=== PATIENT | female | born 1980 | race Caucasian/White ===

== ENCOUNTER → 2017-04-04 | Outpatient (CLI) | payer OTHER ==
[~2017-04-04] MED LIST: AMOXIL500 MG PO; CARBAMAZEPINE200 MG PO; CETIRIZINE HCL10 MG PO; CIPRO 500MG TA500 MG PO; DILANTIN 100MG100 MG PO; KEPPRA1000 MG PO; MEDROL 4MG. DOSE4 MG PO; NAPROSYN 500MG500 MG PO; OXAZEPAM10 MG PO; PHENERGAN 25MG.25 M1 PO; PHENERGAN VC S473 ML PO; PROTONIX 40MG T40 MG PO; TEGRETOL200 MG PO; TESSALON PERLE200 MG PO; ZITHROMAX Z PA250 MG PO; ZOFRAN4 MG PO
--- NOTE | 2017-04-04 13:23 | RADIOLOGY REPORT PS360 ---
US PELVIS-TRANSVAGINAL ONLY COMPARISON: Transvaginal ultrasound pelvis 06/23/2015 HISTORY: Recent surgery, having some vaginal bleeding TECHNIQUE: Transvaginal ultrasound FINDINGS: The uterus is surgically absent. There are no abnormal masses in the vaginal cuff. Both ovaries are imaged the right ovary slightly larger than left with a small functional cyst right ovary measuring 1.0 x 0.9 cm. There is no cul-de-sac fluid. IMPRESSION: Essentially unremarkable study post hysterectomy
== END ==
LOC: RAD 09:56
DX: R10.2 Pelvic and perineal pain (principal)